=== PATIENT | male | born 2000 | race Two or more races ===

== ENCOUNTER 2022-02-28 18:53 | Emergency (ER) | payer SELFPAY ==
[~2022-02-28] VITALS: Ht 177.8 cm; Wt 65.9 kg
[2022-02-28 19:13] VITALS: BP 133/82
[2022-02-28] MEDS ORDERED: PENI500T2 PO (19:47)
[2022-02-28] MEDS ORDERED: METH4TAB3 PO (19:47)
== END 2022-02-28 19:52 | disposition home or self-care (01) ==
LOC: EMS 18:53
DX: J02.9 Acute pharyngitis, unspecified (principal)
CPT/HCPCS: 99283; Z7502

== ENCOUNTER 2022-07-15 09:00 | Emergency (ER) | payer OTHER ==
[~2022-07-15] VITALS: Ht 167.6 cm; Wt 68.2 kg
[~2022-07-15 09:00] MED LIST: METH4TAB3 PO; PENI500T2 PO
[2022-07-15] MEDS ORDERED: PERTUSS(ACELL),DIPH,TET VAC/PF 0.5 ML SYRINGE IM. ONE (09:30)
[2022-07-15] MEDS ORDERED: BACITRACIN 0.9 GM PACKET OINTMENT TP ONE (09:30)
[2022-07-15 10:35] VITALS: BP 128/80
== END 2022-07-15 10:35 | disposition home or self-care (01) ==
LOC: EMS 09:04
DX: S01.01XA Laceration without foreign body of scalp, initial encounter (principal); X58.XXXA Exposure to other specified factors, initial encounter; Y93.89 Activity, other specified; Y92.89 Other specified places as the place of occurrence of the external cause; Y99.0 Civilian activity done for income or pay
CPT/HCPCS: 90471; 90715; 99283